=== PATIENT | female | born 1995 | race African-American/Black ===

== ENCOUNTER 2021-12-26 03:11 | Emergency (ER) | payer OTHER ==
[~2021-12-26] VITALS: Ht 160 cm; Wt 54.0 kg
[2021-12-26 03:42] VITALS: BP 110/62
== END 2021-12-26 06:58 | disposition left against medical advice (07) ==
LOC: ER 03:11 → EDBD 03:11 → ER 06:58
DX: Z53.21 Procedure and treatment not carried out due to patient leaving prior to being seen by health care provider (principal)